=== PATIENT | female | born 1965 | race Caucasian/White ===

== ENCOUNTER 2017-09-27 21:09 | Emergency (ER) | payer OTHER ==
[2017-09-27] MEDS ORDERED: Sodium Chloride 0.9% 10 ML Syringe FLUSH PRN (23:07)
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
--- NOTE | 2017-09-28 08:52 | CR ---
Abdomen 2V AP Flat Upright INDICATION: Abdominal pain and distention, recent rib fracture COMPARISON: None FINDINGS: 2 views. No free air seen. No abnormal air-fluid levels. Large amount of air and stool throughout colon. No signs of bowel obstruction. IUD in the pelvis.
== END 2017-09-28 01:06 | disposition home or self-care (01) ==
LOC: JP.ED 21:09
DX: K59.00 Constipation, unspecified (principal); E03.9 Hypothyroidism, unspecified; Z87.81 Personal history of (healed) traumatic fracture; Z79.899 Other long term (current) drug therapy; Z88.1 Allergy status to other antibiotic agents; Z88.0 Allergy status to penicillin
CPT/HCPCS: 36415; 74019; 80053; 81001; 83605; 83690; 85027; 99284; J7050